=== PATIENT | female | born 1990 | race Caucasian/White ===

== ENCOUNTER 2023-06-04 03:57 | Day surgery (SDC) | payer OTHER ==
[2023-06-04] VITALS (261 sets, daily range): BP systolic 92–141; BP diastolic 45–94
[~2023-06-04] VITALS: Ht 167.6 cm; Wt 53.0 kg
[2023-06-04] MEDS ORDERED: LACTATED RINGER'S 1,000 ML IV PRN ×3 (07:30→19:00)
[2023-06-04] MEDS ORDERED: SCOPOLAMINE 1.5 MG DIS TD PRN (07:30)
[2023-06-04] MEDS ORDERED: diazePAM 5 MG/TAB PO PRN ×2 (07:30→08:30)
[2023-06-04] MEDS ORDERED: CYANOCOBALAMIN 500 MCG/TAB ( B12) PO PRN (07:30)
[2023-06-04] MEDS ORDERED: ALBUTEROL SULFATE 2.5 MG VIAL IN PRN (07:30)
[2023-06-04] MEDS ORDERED: FAMOTIDINE 20 MG/TAB PO PRN (07:30)
[2023-06-04] MEDS ORDERED: PANTOPRAZOLE SODIUM Sesquihydr 40 MG/TAB PO PRN (07:30)
[2023-06-04] MEDS ORDERED: cloNIDine HCL 0.1 MG/TAB PO PRN (07:30)
[2023-06-04] MEDS ORDERED: ASCORBIC ACID 4,000 MG in SODIUM CHLORIDE 0.9% 1,000 ML IV SCH (08:00)
[2023-06-04] MEDS ORDERED: ACETAMINOPHEN 500 MG TAB PO SCH (08:30)
[2023-06-04 08:56] LABS: BASO% 0.4 % (0-3); EOS% 5.2 % (0-8); HEMATOCRIT 38.3 % (37.0-47.0); HEMOGLOBIN 12.8 g/dl (12.0-16.0); IMMATURE GRANULOCYTES 0.5 % (0.0-5.0); MEAN CELL VOLUME 90.5 fL CALC (80.0-100.0); MEAN CORPUSCULAR HGB 30.3 pG CALC (26.0-32.0); MEAN CORPUSCULAR HGB CONC 33.4 g/dL CAL (32.0-36.0); MONO% 7.2 % (2-13); NEUT# 3.84 thou/uL (2.00-7.15); NEUT% 49.7 % (42-76); RED BLOOD COUNT 4.23 mill/uL (4.20-5.60)
[2023-06-04 09:14] LABS: ALBUMIN 4.3 g/dL (3.2-5.0); ALKALINE PHOSPHATASE 62 u/l (38-126); ANION GAP 8 (6-22 (CALC)); BILIRUBIN, TOTAL 0.4 mg/dL (0.02-1.3); BUN 12 mg/dL (7-17); BUN/CREATININE RATIO 17 (12-20 (CALC)); CARBON DIOXIDE 28 mmol/l (22-30); CHLORIDE 106 mmol/l (95-108); CREATININE 0.7 mg/dL (0.5-1.0); GFR FOR AFR.AMER. > 60 ML/MIN (>=60 (CALC)); GFR OTHER RACES > 60 ML/MIN (>=60 (CALC)); POTASSIUM 3.6 mmol/l (3.5-5.1); SGOT/AST 34 u/l (14-36); SODIUM 139 mmol/l (137-146)
[2023-06-04] MEDS ORDERED: TRAZODONE50 MG PO (09:29)
[2023-06-04] MEDS ORDERED: MELATONIN1 TA1 PO (09:30)
[2023-06-04] MEDS ORDERED: MULTI VIT PO (09:31)
[2023-06-04] MEDS ORDERED: THIAMINE HCL 100 MG/ML 2ML VIAL IV PRN (09:45)
[2023-06-04] MEDS ORDERED: diazePAM 5 MG/TAB VT PRN (09:45)
[2023-06-04] MEDS ORDERED: ONDANSETRON HCl 4 MG/2 ML SDV IV PRN ×3 (09:45→19:00)
[2023-06-04] MEDS ORDERED: POTASSIUM CHLORIDE 20 MEQ/100 ML BAG IV PRN (09:45)
[2023-06-04] MEDS ORDERED: OCTREOTIDE ACETATE 100 MCG/VIAL SDV SC PRN (09:45)
[2023-06-04] MEDS ORDERED: MAGNESIUM SULFATE HEPTAHYDRATE 100 ML IV PRN (09:45)
[2023-06-04] MEDS ORDERED: STERILE WATER FOR IRRIGATION 1,000 ML BTL IR PRN (09:45)
[2023-06-04] MEDS ORDERED: DiphenhydrAMINE HCL 50 MG/ML SDV IV PRN (09:45)
[2023-06-04] MEDS ORDERED: SUCCINYLCHOLINE CHLORIDE 20 MG/ML 10ML VIAL IV PRN (09:45)
[2023-06-04] MEDS ORDERED: LIDOCAINE HCL 1% (10MG/ML) 100 MG/10 ML MDV IV PRN (09:45)
[2023-06-04] MEDS ORDERED: cloNIDine HCL 0.1 MG/TAB VT PRN (09:45)
[2023-06-04] MEDS ORDERED: DEXAMETHASONE SOD. PHOSPHATE 10 MG/ML VIAL IV PRN (09:45)
[2023-06-04] MEDS ORDERED: NALTREXONE HCL 50 MG/TAB VT PRN (09:45)
[2023-06-04] MEDS ORDERED: ROCURONIUM BROMIDE 10 MG/ML 5ML VIAL IV PRN (09:45)
[2023-06-04] MEDS ORDERED: LIDOCAINE HCL 1% (10MG/ML) 100 MG/10 ML MDV VT PRN ×2 (09:45)
[2023-06-04] MEDS ORDERED: cloNIDine HYDROCHLORIDE 100 MCG/ML 10 ML INJ IV PRN (09:45)
[2023-06-04] MEDS ORDERED: PROPOFOL 10 MG/ML 100ML VIAL IV PRN (09:45)
[2023-06-04] MEDS ORDERED: PROPOFOL 100 ML IV PRN (09:45)
[2023-06-04] MEDS ORDERED: MIDAZOLAM HCL 2 MG/2 ML VIAL IV PRN (09:45)
[2023-06-04] MEDS ORDERED: KLONOPIN2 MG PO (14:27)
[2023-06-04] MEDS ORDERED: CLONIDINE0.1 MG PO (14:27)
[2023-06-04] MEDS ORDERED: NALTREXONE50 MG PO (14:27)
[2023-06-04] MEDS ORDERED: PATIENT' OWN MED CONTROLLED 1 EA DOSE IV PRN (15:25)
[2023-06-04] MEDS ORDERED: diazePAM 10 MG/2 ML VIAL IV PRN (15:25)
[2023-06-04] MEDS ORDERED: DEXAMETHASONE SODIUM PHOSPHATE PF 10 MG/ML SDV IV PRN (19:00)
[2023-06-04] MEDS ORDERED: HALOPERIDOL LACTATE 5 MG/ML SDV IV PRN (19:00)
[2023-06-04] MEDS ORDERED: PROMETHAZINE HCL 12.5 MG in SODIUM CHLORIDE 0.9% 50 ML IV PRN (19:00)
[2023-06-04] MEDS ORDERED: KETOROLAC TROMETHAMINE 30 MG/ML SDV IV PRN (19:00)
[2023-06-04] MEDS ORDERED: ACETAMINOPHEN 500 MG TAB PO PRN (19:00)
[2023-06-04] MEDS ORDERED: PROMETHAZINE HCL 25 MG in SODIUM CHLORIDE 0.9% 50 ML IV PRN (19:00)
[2023-06-04] MEDS ORDERED: ACETAMINOPHEN 1,000 MG/100 ML VIAL IV PRN (19:00)
[2023-06-04] MEDS ORDERED: LIDOCAINE 4 % PATCH TD PRN (22:20)
[2023-06-04] MEDS ORDERED: diazePAM 10 MG/2 ML VIAL IV SCH (22:20)
[2023-06-04] MEDS ORDERED: KETOROLAC TROMETHAMINE 30 MG/ML SDV IV SCH (22:20)
[2023-06-04] MEDS ORDERED: cloNIDine HCL 0.1 MG/TAB PO SCH (23:00)
[2023-06-04] MEDS ORDERED: clonazePAM 1 MG/TAB PO SCH (23:00)
[2023-06-05 03:44] VITALS: BP 113/62
[2023-06-05] MEDS ORDERED: cloNIDine HCL 0.1 MG/TAB PO PRN (04:00)
[2023-06-05] MEDS ORDERED: clonazePAM 1 MG/TAB PO PRN ×2 (04:00→08:00)
[2023-06-05 05:28] LABS: BASO% 0.2 % (0-3); HEMATOCRIT 36.3 % (37.0-47.0); HEMOGLOBIN 12.2 g/dl (12.0-16.0); IMMATURE GRANULOCYTES 0.2 % (0.0-5.0); LYMPH% 13.7 % (15-41); MEAN CORPUSCULAR HGB 30.6 pG CALC (26.0-32.0); MEAN CORPUSCULAR HGB CONC 33.6 g/dL CAL (32.0-36.0); MONO% 4.2 % (2-13); NEUT# 10.88 thou/uL (2.00-7.15); NEUT% 81.7 % (42-76); RED BLOOD COUNT 3.99 mill/uL (4.20-5.60)
[2023-06-05 05:49] LABS: ALBUMIN 3.7 g/dL (3.2-5.0); ALKALINE PHOSPHATASE 53 u/l (38-126); ANION GAP 8 (6-22 (CALC)); BILIRUBIN, TOTAL 0.6 mg/dL (0.02-1.3); BUN 12 mg/dL (7-17); BUN/CREATININE RATIO 18 (12-20 (CALC)); CARBON DIOXIDE 27 mmol/l (22-30); CHLORIDE 111 mmol/l (95-108); CREATININE 0.7 mg/dL (0.5-1.0); GFR FOR AFR.AMER. > 60 ML/MIN (>=60 (CALC)); GFR OTHER RACES > 60 ML/MIN (>=60 (CALC)); MAGNESIUM 2.5 mg/dL (1.6-2.3); POTASSIUM 3.8 mmol/l (3.5-5.1); SGOT/AST 30 u/l (14-36); SODIUM 142 mmol/l (137-146); TOTAL PROTEIN 6.3 g/dL (6.3-8.2)
[2023-06-05] MEDS ORDERED: PANTOPRAZOLE SODIUM Sesquihydr 40 MG/TAB PO SCH (08:00)
[2023-06-05] MEDS ORDERED: cloNIDine HCL 0.1 MG/TAB PO SCH (08:00)
[2023-06-05] MEDS ORDERED: NALTREXONE HCL 50 MG/TAB PO SCH ×2 (08:00→13:00)
[2023-06-05] MEDS ORDERED: ACETAMINOPHEN 325 MG/TAB PO SCH (08:00)
[2023-06-05] MEDS ORDERED: MAGNESIUM OXIDE 400 MG/TAB PO PRN (09:00)
[2023-06-05] MEDS ORDERED: ACETAMINOPHEN 500 MG TAB PO PRN (09:00)
[2023-06-05] MEDS ORDERED: Cholecalciferol 2,000 UNIT/TAB PO PRN (09:00)
[2023-06-05 11:30] VITALS: BP 94/52
[2023-06-05] MEDS ORDERED: POTASSIUM CHLORIDE 20 MEQ/TAB PO SCH (11:30)
[2023-06-05] MEDS ORDERED: PATIENT' OWN MED CONTROLLED 1 EA DOSE IV SCH (11:30)
== END 2023-06-05 15:47 | disposition home or self-care (01) | DRG 897 ==
LOC: ANR 03:57 → MS2 03:57 → ANR 09:00 → MS2 18:21 → ANR 06-05 15:47
PROVIDERS: ATTEND Anesthesiology
DX: F11.20 Opioid dependence, uncomplicated (principal)
CPT/HCPCS: J0131; J2354; J3475